=== PATIENT | male | born 1945 | race Caucasian/White ===

== ENCOUNTER 2016-10-01 15:18 | Emergency (ER) | payer OTHER ==
--- NOTE | 2016-10-01 16:09 | EDPHY ---
H & P Time Seen by Provider: 10/01/16 15:39 HPI/ROS: CHIEF COMPLAINT: fall, head contusion HISTORY OF PRESENT ILLNESS: Patient is a 71-year-old male with chronic AFib on Xarelto who presents to the emergency department after falling. The patient has a history of dementia. His care provider visits him on Wednesday, and Wednesday. His caregiver was at his house but was outside shoveling snow. When he came any found the patient on the floor. The patient states that he had fallen. The care provider states that he was easily helped up and ambulated well. The patient has no complaints at this time. The care provider was concerned because he has a laceration on the back of the head. The care provider states that the patient has a problem with balance and has undergone physical therapy for this. He seems to be at his baseline. He had no complaints today prior to the fall. Patient denies chest pain, shortness of breath, headache, nausea, vomiting, neck or back pain, or abdominal pain. REVIEW OF SYSTEMS: My complete review of systems is negative except as mentioned in the HPI. Past Medical/Surgical History: Includes hypertension, chronic back pain, dementia, atrial fibrillation Past surgical history: Includes thyroidectomy, hip replacement Social history: The patient was at home. He has a care provider 3 times per week Smoking Status: Former smoker Physical Exam: Vitals noted GENERAL: Well-appearing, in no acute distress, alert. HEAD: Patient has a 3 cm laceration on the posterior aspect of his head. There is no crepitus, step-off or deformity. No active bleeding.. EYES: PERRLA, EOMI, normal to inspection. ENT: Airway intact, no dental or oral injury, no malocclusion, no hemotympanum , normal external examination. NECK: The trachea is midline. There is no crepitus. The C-spine is nontender. RESPIRATORY: Clear to auscultation bilaterally, no rales, rhonchi or wheezing. There is no crepitus or palpable rib fractures. CVS: Irregularly irregular rhythm, no rubs, murmurs, or gallops. (patient care provider states that he is in AFib at baseline) ABDOMEN: Soft, nontender, nondistended, normal bowel sounds, no bruising or abrasions. Pelvis: Stable. No tenderness palpation. Hips full range of motion. BACK: Normal to inspection, no spinal tenderness, no spinal step off, no notable bruising or abrasions. SKIN: Normal color, warm, dry. No pallor or diaphoresis. EXTREMITIES: Right upper extremity: Atraumatic. No visible signs of trauma. No tenderness palpation. Neurovascular intact distally. Left upper extremity: Atraumatic. No visible signs of trauma. No tenderness palpation. Neurovascular intact distally. Right lower extremity: Atraumatic. No visible signs of trauma. No tenderness palpation. Neurovascular intact distally. Left lower extremity: Atraumatic. No visible signs of trauma. No tenderness palpation. Neurovascular intact distally. Atraumatic, neurovascularly intact distally in all extremities, pelvis is stable , hips with full range of motion, moves all extremities freely. NEURO/PSYCH: Alert and oriented, normal mood and affect, normal motor sensory exam. At his baseline per the care provider Constitutional: Initial Vital Signs Temperature (C) 36.7 C 10/01/16 15:19 Heart Rate 91 10/01/16 15:19 Respiratory Rate 18 10/01/16 15:19 Blood Pressure 159/94 H 10/01/16 15:19 O2 Sat (%) 95 10/01/16 15:19 O2 Delivery Mode Room Air Allergies/Adverse Reactions: No Known Allergies Allergy (Unverified 07/22/15 14:55) Home Medications: Medication Instructions Recorded Simvastatin [Zocor 20 mg] 10 mg PO HS 01/24/13 Tamsulosin HCl [Flomax 0.4 MG (*)] 0.4 mg PO HS 01/24/13 amLODIPine BESYLATE [Norvasc 5 mg 5 mg PO DAILY06 01/24/13 (*)] Rivaroxaban [Xarelto] 20 mg PO DAILY06 04/21/13 Hydrochlorothiazide [HCTZ (*)] 25 mg PO DAILY06 06/19/14 Amenda 28 mg PO DAILY06 05/05/16 Donepezil HCl PO HS 05/05/16 Ibuprofen 400 mg PO BID 05/05/16 Medical Decision Making ED Course/Re-evaluation: In the emergency department I discussed possible etiologies with the patient and his care provider. I answered their questions. They consented to having his wound repaired. Head CT and C-spine CT were ordered. I do not feel the patient needs laboratory studies at this time. I discussed this with the care provider in the patient. They felt comfortable with this plan. Procedure: Laceration repair. Verbal consent was obtained from the patient. The 3 cm laceration on the posterior aspect of the head was anesthetized in the usual fashion. The wound was irrigated, draped and explored to its base with a gloved finger. No galeal involvement. The wound was repaired with [josué ]. The wound repair was simple. The procedure was performed by myself. Head CT: Please refer the dictated report. No acute disease noted. C-spine CT: Please refer the dictated report. Soft tissue swelling. No other acute disease noted. I discussed the results with the patient is care provider. I answered all their questions. On recheck the patient was doing well. He had no complaints. 17 25: The patient is doing well. He has no complaints of headache or neck pain. On re-examination he has no focal deficits. The nurse contacted the patient's daughter. This was to inform her of his CT results and the need for outpatient follow-up for his josué. I discussed the case with the patient's family in [place]. I spoke with the patient's power of environmental attorney. He is a physician. I discussed the patient's presentation and findings. He felt comfortable having the patient sent home this evening. Patient's care provider will stay with him tonight. They are given warnings prior to leaving. He will return with worsening symptoms. Differential Diagnosis: My differential includes but is not limited to contusion, subarachnoid hemorrhage, subdural hematoma, epidural hematoma, spinal fracture, coagulopathy , electrolyte abnormality, sugar abnormality, ACS, acute MN, dysrhythmia Departure - Departure Disposition: Home, Routine, Self-Care Clinical Impression: Laceration of head Qualifiers: Qualifier Code: (S01.01XA) Laceration without foreign body of scalp, initial encounter Condition: Good Instructions: Head Injury (ED), Laceration (ED) Additional Instructions: You need your josué removed in 8-9 days. Return to the emergency department for this. Return with increasing headache, confusion, weakness, numbness or any other concerns. Referrals: Rohan Wilks MD [Primary Care Provider] - 3-4 days, if not improved
--- NOTE | 2016-10-01 16:44 | CT ---
1. CT Head Without Contrast History: Trauma. Fall onto occiput today. Headache. Technique: Soft tissue and bone window evaluation is performed. Dose reduction techniques were utiliz ed. Comparison: October 30, 2015 Findings: There is are small, off midline, scalp hematomas without underlying occipital skull fractu re. There is stable cerebral atrophy. There is no midline shift, hydrocephalus, parenchymal or subara chnoid bleeding. The ambient cistern is patent. There is no evidence of subdural hematoma formation. Bone window evaluation does not show evidence of a depressed skull fracture or pneumocephalus. The pa ranasal and mastoid sinuses are normally aerated. Impression: No acute intracranial posttraumatic abnormality identified. 2. CT Cervical Spine Without Contrast History: Trauma. Fall earlier today. Comparison: April 21, 2013 Technique: Multislice helical CT through the cervical spine without contrast from the skull base to T 1. Soft tissue and bone evaluation is performed. Sagittal and coronal reconstructions are obtained an d reviewed. Dose reduction techniques were utilized. Findings: Cervical alignment is stable. No acute fracture or dislocation is identified. There is a st able minimal T6 compression deformity. The relationship between skull base and C1 is normal. The C1-C 2 articulation is normally aligned, but associated with chronic degenerative change. The odontoid pro cess is intact. There is stable chronic degenerative disk disease between C3 and C7. Facet joints rem ain normally aligned, but are associated with mild scattered degenerative change. The cervical thora cic junction is normally aligned. Soft tissue window evaluation does not show evidence of epidural or prevertebral hematoma. Impression: 1. Stable chronic degenerative change since March 2013. 2. No acute posttraumatic abnormality identified. Results concordant called to Dr. Sheehan. at 4:41 p.m. Final results are concordant with the initial interpretation. General information for patients regarding this examination can be found at [email or web address]. If you have questions or comments about this report, please contact me at [phone] (hospital) or [phone] (cell).
[2016-10-01 18:09] VITALS: BP 114/90; PULSE 78; RESP 16; TEMP 97.9; O2SAT 94
== END 2016-10-01 18:13 | disposition home or self-care (01) ==
PROC: 0HQ0XZZ Repair Scalp Skin, External Approach (ICD-10-PCS; principal; 2016-10-01)
DX: S01.01XA Laceration without foreign body of scalp, initial encounter (principal); I10 Essential (primary) hypertension; Z87.891 Personal history of nicotine dependence; Z79.01 Long term (current) use of anticoagulants; W18.39XA Other fall on same level, initial encounter; Y92.009 Unspecified place in unspecified non-institutional (private) residence as the place of occurrence of the external cause